=== PATIENT | female | born 1980 | race Caucasian/White ===

== ENCOUNTER 2016-08-23 05:44 | Emergency (ER) | payer OTHER, MEDICARE ==
[~2016-08-23] VITALS: Ht 177.8 cm; Wt 138.5 kg
[~2016-08-23 05:44] MED LIST: ALDACTONE100 MG PO; CELEXA20 MG PO; CITALOPRAM HBR20 MG PO; CYMBALTA30 MG PO; LYRICA75 MG PO; MOTRIN800 MG PO; TOPAMAX50 MG PO
[2016-08-23] MEDS ORDERED: TRAMADOL HCL50 MG PO (07:42)
[2016-08-23 08:22] VITALS: BP 120/78
== END 2016-08-23 08:23 | disposition home or self-care (01) ==
LOC: EME 05:44
DX: S00.11XA Contusion of right eyelid and periocular area, initial encounter (principal); Y04.2XXA Assault by strike against or bumped into by another person, initial encounter; Y99.0 Civilian activity done for income or pay; Y92.129 Unspecified place in nursing home as the place of occurrence of the external cause
CPT/HCPCS: 70486; 99281; 99283

== ENCOUNTER 2017-01-04 15:55 | Emergency (ER) | payer SELFPAY ==
[~2017-01-04] VITALS: Ht 179.1 cm; Wt 136.0 kg
[~2017-01-04 15:55] MED LIST changes: +TRAMADOL HCL50 MG PO
[2017-01-04 16:54] LABS: ADD MIUA? YES; BILIRUBIN NEGATIVE; BLOOD SMALL; COLOR YELLOW ((YELLOW)); GLUCOSE (STRIP) NEGATIVE; KETONES NEGATIVE; LEUKOCYTES NEGATIVE; NITRITE NEGATIVE; PROTEIN (STRIP) 30; SPECIFIC GRAVITY 1.028 (1.000-1.030); UROBILINOGEN 0.2 MG/DL (0.2-1.0)
[2017-01-04 16:59] LABS: BACTERIA NONE SEEN /HPF; EPITHELIAL CELLS RARE /HPF; HYALINE CASTS 0-5 /LPF; MUCUS TRACE /LPF; RED BLOOD CELLS 0-5 /HPF (0-5); UCUL ADDED? NO; WHITE BLOOD CELLS 0-5 /HPF (0-5)
[2017-01-04 17:03] LABS: HEMATOCRIT 38.9 % (36.0-46.0); MCH 28.3 PG (29.0-34.0); MCHC 32.4 G/DL (30.0-36.0); MCV 87.2 FL (83-99); MEAN PLAT.VOLUME 10.8 uM^3 (9.5-12.4); PLATELET COUNT 269 K/uL (156-360); RBC DIS.WIDTH-CV 13.7 % (11.8-14.6); RBC DIS.WIDTH-SD 44.2 % (39-53); RED BLOOD COUNT 4.46 M/uL (3.80-5.20); WHITE BLOOD COUNT 8.6 K/uL (4.1-10.2)
[2017-01-04 17:14] LABS: CHLORIDE 107 mEq/L (99-109); POTASSIUM 4.8 mEq/L (3.7-5.4); SODIUM 142 mEq/L (136-147)
[2017-01-04 17:16] LABS: GLUCOSE 85 mg/dL (70-99)
[2017-01-04 17:17] LABS: ANION GAP 12 MEQ/L (2-14)
[2017-01-04 17:20] LABS: GFR ESTIMATE (CALCULATED) > 59 mL/min/
[2017-01-04 17:21] LABS: UREA NITROGEN (BUN) 10 mg/dL (9-23)
[2017-01-04 20:29] LABS: INTERNAL CONTROL VALID? YES
[2017-01-04] MEDS ORDERED: LORTAB 5-325 M1 EACH PO (22:35)
[2017-01-04] MEDS ORDERED: ZOFRAN ODT4 MG PO (22:35)
[2017-01-04] MEDS ORDERED: MOTRIN800 MG PO (22:35)
[2017-01-04] MEDS ORDERED: FLEXERIL10 MG PO (22:35)
[2017-01-04 23:13] VITALS: BP 14/77
== END 2017-01-04 23:16 | disposition home or self-care (01) ==
LOC: EME 15:55
PROVIDERS: Emergency Medicine
DX: M54.5 Low back pain (principal); R10.814 Left lower quadrant abdominal tenderness; Z85.71 Personal history of Hodgkin lymphoma; F17.200 Nicotine dependence, unspecified, uncomplicated
CPT/HCPCS: 74177; 80048; 81003; 84703; 85027; 99281; 99285; J2270; J2405; J7030

== ENCOUNTER 2017-08-10 08:13 | Emergency (ER) | payer MEDICARE ==
[~2017-08-10] VITALS: Ht 177.8 cm; Wt 136.3 kg
[~2017-08-10 08:13] MED LIST changes: +FLEXERIL10 MG PO; +LORTAB 5-325 M1 EACH PO; +ZOFRAN ODT4 MG PO
[2017-08-10] MEDS ORDERED: PREDNISONE5 M1 PO (09:38)
[2017-08-10] MEDS ORDERED: VALIUM5 MG PO (09:38)
[2017-08-10] MEDS ORDERED: ULTRAM50 MG PO (09:38)
[2017-08-10 10:38] VITALS: BP 115/64
== END 2017-08-10 10:40 | disposition home or self-care (01) ==
LOC: EME 08:13
DX: M54.42 Lumbago with sciatica, left side (principal); M51.36 Other intervertebral disc degeneration, lumbar region; G89.29 Other chronic pain; Z85.71 Personal history of Hodgkin lymphoma; Z88.5 Allergy status to narcotic agent; F17.200 Nicotine dependence, unspecified, uncomplicated
CPT/HCPCS: 72100; 99281; 99285; J1885; J3010; J7512

== ENCOUNTER 2017-08-16 16:31 | Emergency (ER) | payer OTHER, MEDICARE ==
[~2017-08-16] VITALS: Ht 177.8 cm; Wt 137.9 kg
[~2017-08-16 16:31] MED LIST changes: +PREDNISONE5 M1 PO; +ULTRAM50 MG PO; +VALIUM5 MG PO
[2017-08-16] MEDS ORDERED: NAPROSYN500 MG PO (19:20)
[2017-08-16] MEDS ORDERED: FLEXERIL10 MG PO (19:20)
[2017-08-16 20:10] VITALS: BP 122/81
== END 2017-08-16 20:25 | disposition home or self-care (01) ==
LOC: EME 16:31
DX: M62.838 Other muscle spasm (principal); M62.830 Muscle spasm of back; V43.51XA Car driver injured in collision with sport utility vehicle in traffic accident, initial encounter; Y92.410 Unspecified street and highway as the place of occurrence of the external cause; G43.909 Migraine, unspecified, not intractable, without status migrainosus; Z85.71 Personal history of Hodgkin lymphoma; Z72.0 Tobacco use; Z88.5 Allergy status to narcotic agent; Z88.1 Allergy status to other antibiotic agents
CPT/HCPCS: 72125; 72131; 99281; 99284